=== PATIENT | female | born 1950 | race Caucasian/White ===

== ENCOUNTER 2023-07-16 13:00 | Day surgery (SDC) | payer MEDICARE, SELFPAY ==
[2023-07-16] VITALS (11 sets, daily range): BP systolic 102–145; BP diastolic 55–73; BMI 33.6
[2023-07-16] MEDS: LOW STRENGTH ASPIRIN 243 MG PO (13:35)
[2023-07-16] MEDS: NSS 1000 IV (13:40)
--- NOTE | 2023-07-16 14:50 | ITS.CL.CATH ---
Dye Weigher - Catheterization
Cardiac Catheterization
Procedure Report:
CARDIAC CATHETERIZATION REPORT
Date of Procedure: 07/16/2023
Referring: Jalil Camejo MD
Indication: Chest discomfort with abnormal stress test with prior history Takotsubo cardiomyopathy
HEMODYNAMIC DATA
AO: 148/83
LV: 148/24
LEFT VENTRICULOGRAPHY: Normal left-ventricular wall motion with EF 65%
CORONARY ANGIOGRAPHY
Dominance: Right
Left Main: Normal
LAD: Normal
Circumflex: Normal
RCA: Normal dominant vessel
Closure Device: None-the procedure was performed via the right radial artery. The Jerrod's test was normal prior to the procedure.
Radiation (mGy): 217
DAP (cm2.Gy): 16.5
Fluoroscopy time: 2.2 minutes
CONCLUSIONS
1: Normal ventricular wall motion with EF 65%
2: Normal coronary arteries
Copy to: Jalil Camejo MD, Jessica Sullivan DO
Bernabe Short MD, [facility]
== END 2023-07-16 16:30 | disposition home or self-care (01) ==
LOC: CATH 13:00
PROVIDERS: ATTENDING PHYSICIAN Internal Medicine Cardiovascular Disease; FAMILY PHYSICIAN Family Medicine; OTHER PHYSICIAN Internal Medicine Cardiovascular Disease
DX: R07.89 Other chest pain (principal); R94.39 Abnormal result of other cardiovascular function study; I51.81 Takotsubo syndrome; I47.10 Supraventricular tachycardia, unspecified; K21.9 Gastro-esophageal reflux disease without esophagitis; Z85.3 Personal history of malignant neoplasm of breast
CPT/HCPCS: 93458; C1817; C1894; Q9967

== ENCOUNTER → 2023-08-25 16:46 | Outpatient (REF) | payer MEDICARE, SELFPAY | LOC: WDC 16:46 | PROVIDERS: ATTENDING PHYSICIAN Family Medicine | DX: Z12.31 Encounter for screening mammogram for malignant neoplasm of breast (principal) | CPT/HCPCS: 77063; 77067 ==

== ENCOUNTER → 2023-10-14 07:21 | Outpatient (REF) | payer MEDICARE, SELFPAY | LOC: MRI 3T 07:21 | PROVIDERS: ATTENDING PHYSICIAN Internal Medicine Gastroenterology; FAMILY PHYSICIAN Family Medicine | DX: K86.2 Cyst of pancreas (principal) | CPT/HCPCS: 74183; A9575 ==

== ENCOUNTER → 2023-10-22 09:17 | Outpatient (REF) | payer MEDICARE, SELFPAY | LOC: RAD 09:17 | PROVIDERS: ATTENDING PHYSICIAN Family Medicine | DX: R09.89 Other specified symptoms and signs involving the circulatory and respiratory systems (principal) | CPT/HCPCS: 93922 ==

== ENCOUNTER → 2023-10-26 10:07 | Outpatient (REF) | payer MEDICARE, SELFPAY | LOC: RAD 10:07 | PROVIDERS: ATTENDING PHYSICIAN Internal Medicine; FAMILY PHYSICIAN Family Medicine | DX: K44.9 Diaphragmatic hernia without obstruction or gangrene (principal); R14.0 Abdominal distension (gaseous) | CPT/HCPCS: 74246 ==

== ENCOUNTER 2023-11-01 14:17 | Emergency (ER) | payer MEDICARE, SELFPAY ==
[2023-11-01 14:19] VITALS: BP 146/63; BMI 35.9
--- NOTE | 2023-11-01 14:57 | ED.MUSCINJ ---
HPI-Injury
<Diandra Lopez MILLED RUBBER TENDER - Last Filed: 11/02/23 20:50>
General
Chief Complaint: Fall
Source: patient
Exam Limitations: none
Time Seen by Provider: 11/01/23 14:56
Nursing documentation reviewed up to this point in time: agreed with
Travel History
Have you had any contact with someone who has COVID-19?: No
Do you have any symptoms of coronavirus? Fever > 100 degrees, chills, cough, shortness of breath, sore throat, loss of taste or smell, muscle aches, or headache?: No
History of Present Illness-Injury
Initial Injury comments:
73 yo female w h/o HTN, GERD, here with right rib pain after a fall. Foot slipped as she was coming down her stairs at home about 2 hours ago she fell off the last step, landed on her knees fell sideways and struck right posterior ribs on a
planter, was on her knees, leaning on an ottoman for about 45 minutes until EMS came. Her witnessed the fall and called EMS. Denies hitting head, not anticoagulated.
Hx fibromyalgia takes Tramadol 25 mg QID. Last dose 11 a.m.
Past History
<Diandra Lopez, MILLED RUBBER TENDER - Last Filed: 11/02/23 20:50>
Past History
ED Past Medical History: Fibromyalgia, GERD, HTN, Hypercholesterolemia and Other
Social History
Tobacco: Non-smoker
Personal:
Living: with family
Employment: Retired
Review of Systems
<Diandra Lopez, MILLED RUBBER TENDER - Last Filed: 11/02/23 20:50>
Review of Systems
Allergies reviewed?: Yes
All Other Systems: ROS reviewed and negative except as documented in HPI and ROS
Constitutional: Denies fever
Respiratory: Denies cough or trouble breathing
Cardiac: Denies chest pain
ABD/GI: Denies abdominal pain
Musculoskeletal: Reports other (posterior right rib pain)
Skin: Reports no symptoms
Neurological: Reports no symptoms
Phy Exam
<Diandra Lopez MILLED RUBBER TENDER - Last Filed: 11/02/23 20:50>
Physical Exam
Physical Exam:
GENERAL: No acute distress. A&Ox3.
CONSTITUTIONAL: Afebrile.
EYES: PERRL, conjunctivae normal
Neck: Supple
ENMT: moist mucus membranes, Pharynx nl
RESPIRATORY: Regular respirations, nonlabored, lungs clear.
CARDIOVASCULAR: Regular rate and rhythm, no murmurs, no rubs.
GI: Soft, nontender, normal BS
MUSCULOSKELETAL: Tender right mid posterior lateral ribs. Well perfused.
SKIN: Warm, dry, pink
PSYCH: Normal mood and affect. Well kept, interactive and appropriate
NEUROLOGIC: Awake, alert and oriented. No focal neurological deficits
Injury Course
<Diandra Lopez, MILLED RUBBER TENDER - Last Filed: 11/02/23 20:50>
Orders/Labs/Results
Orders:
Orders
11/01/23 14:32
CR Ribs-right 2 Vw No Pa Chest Urgent
Comment:
Reason For Exam: fall, pain
11/01/23 15:05
HYDROmorphone [Dilaudid] 0.5 mg IM NOW STA
Ibuprofen [Motrin] 600 mg PO NOW STA
11/01/23 16:16
CT Chest/abd/pel W Iv Cont Urgent
Reason For Exam: fall, fx ribs, admitting
0.9% Sodium Chloride 500 ml [Nss] 500 ml IV BOLUS
11/01/23 16:46
Complete Blood Count/With Diff Urgent
Comprehensive Metabolic Panel Urgent
11/01/23 18:36
Carvedilol [Coreg] 6.25 mg PO NOW STA
11/01/23 21:54
HYDROmorphone [Dilaudid] 0.5 mg IV NOW STA
Abnormal Lab Results
11/01/23
16:46
WBC 21.2 H 10^3/uL
(4.8-10.8)
RBC 3.58 L 10^6/uL
(4.20-5.40)
Hgb 11.5 L g/dL
(12.0-16.0)
Hct 33.3 L %
(37.0-47.0)
MCH 32.1 H pg
(27.0-31.0)
Abs Immat Gran (auto) 0.1 H 10^3/uL
(0-0.05)
Absolute Neuts (auto) 19.0 H 10^3/uL
(1.4-6.5)
Absolute Lymphs (auto) 1.1 L 10^3/uL
(1.2-3.4)
Absolute Monos (auto) 0.8 H 10^3/uL
(0.1-0.6)
Immature Gran % 0.6 H %
(0-0.5)
Neutrophils % 89.6 H %
(42.2-75.2)
Lymphocytes % 5.4 L %
(20.5-51.1)
BUN 18 H mg/dl
(7-17)
Glucose 130 H mg/dl
(70-99)
11/01/23 16:46
11/01/23 16:46
Maritalt;Sylvester Spears, - Last Filed: 11/01/23 19:53>
Orders/Labs/Results
Orders:
Orders
11/01/23 14:32
CR Ribs-right 2 Vw No Pa Chest Urgent
Comment:
Reason For Exam: fall, pain
11/01/23 15:05
HYDROmorphone [Dilaudid] 0.5 mg IM NOW STA
Ibuprofen [Motrin] 600 mg PO NOW STA
11/01/23 16:16
CT Chest/abd/pel W Iv Cont Urgent
Reason For Exam: fall, fx ribs, admitting
0.9% Sodium Chloride 500 ml [Nss] 500 ml IV BOLUS
11/01/23 16:46
Complete Blood Count/With Diff Urgent
Comprehensive Metabolic Panel Urgent
11/01/23 18:36
Carvedilol [Coreg] 6.25 mg PO NOW STA
11/01/23 21:54
HYDROmorphone [Dilaudid] 0.5 mg IV NOW STA
Abnormal Lab Results
11/01/23
16:46
WBC 21.2 H 10^3/uL
(4.8-10.8)
RBC 3.58 L 10^6/uL
(4.20-5.40)
Hgb 11.5 L g/dL
(12.0-16.0)
Hct 33.3 L %
(37.0-47.0)
MCH 32.1 H pg
(27.0-31.0)
Abs Immat Gran (auto) 0.1 H 10^3/uL
(0-0.05)
Absolute Neuts (auto) 19.0 H 10^3/uL
(1.4-6.5)
Absolute Lymphs (auto) 1.1 L 10^3/uL
(1.2-3.4)
Absolute Monos (auto) 0.8 H 10^3/uL
(0.1-0.6)
Immature Gran % 0.6 H %
(0-0.5)
Neutrophils % 89.6 H %
(42.2-75.2)
Lymphocytes % 5.4 L %
(20.5-51.1)
BUN 18 H mg/dl
(7-17)
Glucose 130 H mg/dl
(70-99)
11/01/23 16:46
11/01/23 16:46
<Diandra Lopez, MILLED RUBBER TENDER - Last Filed: 11/02/23 20:50>
MDM/Problems Addressed
Differential Diagnosis Includes:
Rib fracture, pneumothorax, hemothorax
MDM/Problems Addressed:
73 yo female w h/o HTN, GERD, here with right rib pain after a fall. Foot slipped as she was coming down her stairs at home about 2 hours ago she fell off the last step, landed on her knees fell sideways and struck right posterior ribs on a
planter, was on her knees, leaning on an ottoman for about 45 minutes until EMS came. Her witnessed the fall and called EMS. Denies hitting head, not anticoagulated.
Hx fibromyalgia takes Tramadol 25 mg QID. Last dose 11 a.m.
4:00 PM
CXR: read by this examiner: Fracture ribs 7 and 8, no pneumothorax
CBC: WBC 21.2, hemoglobin 11.5, her baseline hemoglobin
CMP: Normal
6:44 PM:
CT chest/abdomen/pelvis radiology report read:IMPRESSION:
Displaced fractures of the right posterior 7th through 11th ribs with accompanying small right pleural effusion and accompanying small right anterior pneumothorax. No mediastinal shift.
No acute posttraumatic soft tissue abnormality throughout the abdomen and pelvis.
Patient informed of results. She will be transferred to trauma center, requests [facility].
Placed on 2L NC O2
Remains stable
Report given to accepting trauma surgeon Dr. Sheriff
No bed available yet, they are working on it and will get back to us.
8:49 p.m.
Case discussed with Dr. Spears who will assume care from this point
Pt remains stable, awaiting transfer to [place]
<Diandra Lopez, MILLED RUBBER TENDER - Last Filed: 11/02/23 20:50>
*Critical Care Note
Total Time (30-74mins, 75-104mins- exclusive of procedures): Not Applicable
ED Attending Note
<Diandra Lopez MILLED RUBBER TENDER - Last Filed: 11/02/23 20:50>
-
Portions of this chart may have been created with voice recognition software.� Occasional wrong word or��sound alike� substitutions may have occurred due to the inherent limitations of voice recognition software.
<Sylvester Spears DO - Last Filed: 11/01/23 19:53>
ED Attending Note
Patient seen and examined by attending physician: Yes
I performed the substantive portion of visit, reviewed & personally made and approve the management plan that is documented in note by myself or RONY.: Yes
ED Attending Note:
Patient is a 73-year-old female presents to the emergency department complaining of right sided chest pain after slipping on her deck while carrying an aluminum chair and striking the right side on a metal planter. Patient denies actually falling
to the ground. Patient denies any head injury. Patient denies any neck or back pain. Patient denies any abdominal pain or extremity pain. On physical exam the patient is is uncomfortable with tenderness in her right ribs but abdomen soft
nontender. Head is normocephalic and supple. No cyanosis or extremity deformity. Chest x-ray shows 3 rib fractures with some small pleural effusion on the right. CT was asked for and shows 5 rib fractures and small pneumothorax. Patient will be
transferred to a trauma facility.
Discharge Plan
Departure
Patient Disposition: Acute Care Hospital
Date of Disposition: 11/01/23
Time of Disposition: 22:14
Patient with high blood pressure during this ER visit?: No
Condition: Serious
Discharge Problem:
Multiple fractures of ribs of right side, Pneumothorax, acute, Fall from slip, trip, or stumble
Prescriptions:
No Action
milk thistle 175 MG tablet
175 mg PO DAILY
simvastatin 20 MG tablet
20 mg PO HS
candesartan 4 MG tablet
4 mg PO DAILY Qty: 0 0RF
Magnesium Taurate
120 mg PO BID
tramadol 50 mg Tablet
50 mg PO QID
esomeprazole magnesium [Nexium] 20 mg Capsule,Delayed Release(Dr/Ec)
20 mg PO Q48H
cholecalciferol (vitamin D3) [Vitamin D3] 25 mcg (1,000 unit) Capsule
25 mcg PO DAILY
mesalamine 1.2 gram Tablet,Delayed Release (Dr/Ec)
2.4 g PO DAILY
Cbd
1 drp sublingual HSPRN PRN (Reason: Sleep)
ibandronate [Boniva] 150 mg Tablet
150 mg PO MONTHLY
turmeric root extract 500 MG capsule
1,500 mg PO BID
coenzyme Q10 [CoQ-10] 100 mg Capsule
100 mg PO DAILY
carvedilol 3.125 mg Tablet
3.125 mg PO TID
multivitamin Tablet
1 tab PO DAILY
acetaminophen 500 MG tablet
1,000 mg PO Q6H PRN (Reason: pain)
Referrals:
Jessica Sullivan DO [Family Provider] -
Hospital Transfer
Other hospital: [facility]
I certify that the patient requires transfer: Yes
Discussed case with accepting physician: Esther
Reason for transfer: higher level of care and specialties available
Interventions
Interventions:
*Risk Screen - Suicide Last Done: 11/01/23 14:19
*General Assessment Last Done: 11/01/23 14:19
*Neglect/Abuse Screening Last Done: 11/01/23 14:19
*ED COVID-19 Vaccine History Last Done: 11/01/23 14:19
*Nursing Disposition Last Done: 11/01/23 20:58
ED-Musculoskeletal Assessment Last Done: 11/01/23 14:19
ED- Neurological Assessment Last Done: 11/01/23 14:32
ED-Skin Assessment Last Done: 11/01/23 14:32
Discharge Date and Time
Discharge Date/Time: 11/02/23 00:14
Print Language: IRISH
[2023-11-01] MEDS: MOTRIN 600 MG PO (15:53)
[2023-11-01] MEDS: DILAUDID 0.5 MG IM (15:53)
[2023-11-01] MEDS: NSS 500 IV (16:46)
[2023-11-01 16:54] LABS: % Basophils 0.4 % (0-2); % Eosinophils 0.2 % (0-6); % Immature Granulocytes 0.6 % (0-0.5); % Lymphocytes 5.4 % (20.5-51.1); % Monocytes 3.8 % (1.7-9.3); % Neutrophils 89.6 % (42.2-75.2); Absolute Basophils 0.1 10^3/uL (0-0.2); Absolute Immature Granulocytes 0.1 10^3/uL (0-0.05); Absolute Lymphocytes 1.1 10^3/uL (1.2-3.4); Absolute Monocytes 0.8 10^3/uL (0.1-0.6); Hematocrit 33.3 % (37.0-47.0); Hemoglobin 11.5 g/dL (12.0-16.0); Mean Corp Hgb Conc. 34.5 g/dL (33.0-37.0); Mean Corpuscular Hgb 32.1 pg (27.0-31.0); Mean Platelet Volume 9.5 fL (7.4-10.4); Nucleated Red Blood Cells % 0 %; Platelet Count 284 10^3/uL (130-400); Red Blood Cell Count 3.58 10^6/uL (4.20-5.40); Red Cell Dist. Width 13.9 % (11.5-14.5); White Blood Cell Count 21.2 10^3/uL (4.8-10.8)
[2023-11-01 17:09] LABS: ALT (SGPT) 20 U/L (0-35); AST (SGOT) 32 U/L (14-36); Albumin 4.3 g/dl (3.5-5.0); Alkaline Phosphatase 85 U/L (38-126); Blood Urea Nitrogen 18 mg/dl (7-17); Calcium 9.1 mg/dl (8.4-10.2); Carbon Dioxide 29 mmol/L (22-30); Chloride 106 mmol/L (98-107); Estimated Creatinine Clearance 80 ml/min; Glucose 130 mg/dl (70-99); Potassium 4.3 mmol/L (3.5-5.1); Sodium 140 mmol/L (135-145); Total Bilirubin 0.4 mg/dl (0.2-1.3); Total Protein 7.3 g/dl (6.3-8.2); eGFR > 60.00
[2023-11-01 18:48] VITALS: BP 153/55
[2023-11-01] MEDS: COREG 6.25 MG PO (18:53)
[2023-11-01 21:50] VITALS: BP 122/56
[2023-11-01] MEDS: DILAUDID 0.5 MG IV (22:03)
[2023-11-01 23:46] VITALS: BP 121/62
== END 2023-11-02 00:14 | disposition short-term general hospital (02) ==
LOC: EMR 14:17
PROVIDERS: Registered Nurse; EMERGENCY PHYSICIAN Emergency Medicine; FAMILY PHYSICIAN Family Medicine
DX: S22.41XA Multiple fractures of ribs, right side, initial encounter for closed fracture (principal); S27.0XXA Traumatic pneumothorax, initial encounter; J90 Pleural effusion, not elsewhere classified; W10.9XXA Fall (on) (from) unspecified stairs and steps, initial encounter; Y92.008 Other place in unspecified non-institutional (private) residence as the place of occurrence of the external cause; I10 Essential (primary) hypertension; K21.9 Gastro-esophageal reflux disease without esophagitis; M79.7 Fibromyalgia; E78.00 Pure hypercholesterolemia, unspecified; Z88.8 Allergy status to other drugs, medicaments and biological substances
CPT/HCPCS: 99285; 96372; 96374; 71100; 71260; 74177; 80053; 85025; Q9967

== ENCOUNTER → 2023-12-07 07:34 | Outpatient (REF) | payer MEDICARE, SELFPAY | LOC: EMG 07:34 | PROVIDERS: ATTENDING PHYSICIAN Psychiatry & Neurology Neurology; FAMILY PHYSICIAN Family Medicine | DX: M79.606 Pain in leg, unspecified (principal); R20.0 Anesthesia of skin | CPT/HCPCS: 95886; 95911 ==

== ENCOUNTER → 2023-12-17 20:28 | Outpatient (REF) | payer MEDICARE, SELFPAY | LOC: PAVMRI 20:28 | PROVIDERS: ATTENDING PHYSICIAN Psychiatry & Neurology Neurology; FAMILY PHYSICIAN Family Medicine | DX: M54.50 Low back pain, unspecified (principal) | CPT/HCPCS: 72148 ==

== ENCOUNTER → 2024-04-27 06:52 | Outpatient (REF) | payer MEDICARE, SELFPAY | LOC: RAD 06:52 | PROVIDERS: ATTENDING PHYSICIAN Internal Medicine Hematology & Oncology; FAMILY PHYSICIAN Family Medicine; REFERRING PHYSICIAN Nurse Practitioner Adult Health | DX: Z86.718 Personal history of other venous thrombosis and embolism (principal); I26.99 Other pulmonary embolism without acute cor pulmonale | CPT/HCPCS: 93970 ==

== ENCOUNTER 2024-06-13 07:50 | Day surgery (SDC) | payer MEDICARE, SELFPAY ==
[2024-05-30 11:23] LABS: Hematocrit 35.9 % (37.0-47.0); Hemoglobin 11.5 g/dL (12.0-16.0); Mean Corpuscular Hgb 31.9 pg (27.0-31.0); Mean Corpuscular Volume 99.4 fL (81.0-99.0); Mean Platelet Volume 10.3 fL (7.4-10.4); Platelet Count 292 10^3/uL (130-400); Red Blood Cell Count 3.61 10^6/uL (4.20-5.40); Red Cell Dist. Width 14.4 % (11.5-14.5); White Blood Cell Count 7.6 10^3/uL (4.8-10.8)
[2024-05-30 12:01] LABS: ALT (SGPT) 17 U/L (0-35); AST (SGOT) 24 U/L (14-36); Albumin 4.3 g/dl (3.5-5.0); Alkaline Phosphatase 51 U/L (38-126); Blood Urea Nitrogen 18 mg/dl (7-17); Calcium 9.3 mg/dl (8.4-10.2); Carbon Dioxide 31 mmol/L (22-30); Chloride 103 mmol/L (98-107); Glucose 91 mg/dl (70-99); Potassium 4.5 mmol/L (3.5-5.1); Sodium 139 mmol/L (135-145); Total Bilirubin 0.6 mg/dl (0.2-1.3); Total Protein 7.1 g/dl (6.3-8.2); eGFR > 60.00
[2024-06-13] VITALS (18 sets, daily range): BP systolic 128–163; BP diastolic 55–66; BMI 31.3
--- NOTE | 2024-06-13 08:22 | HP.FOC2 ---
Focused History & Physical
Chief Complaint
HPI:
Chief Complaint: Symptomatic paraesophageal hernia
HPI / Indication for Planned Procedure: Patient is a 73-year-old female with a known large type III/IV paraesophageal hernia that she had been following expectantly over the years. She has now been experiencing intermittent episodes of intense
upper abdominal pain, swelling and nausea. Symptoms will last a few hours until she is able to vomit which then alleviates her symptoms. She has had recent CT imaging demonstrating a large type IV paraesophageal hernia containing the entire
stomach up to the level of the pylorus. Upper GI imaging also confirms a large paraesophageal hernia with gastric rotation and delayed gastric emptying. Last EGD July 2022 with moderate chronic esophageal inflammation but biopsy negative for
Lynn's esophagus.
Relevant Past Medical History: Other (Fibromyalgia, GERD, ulcerative colitis, Takotsubo's cardiomyopathy, SVT, history of pulmonary embolism/DVT left lower extremity; paraesophageal hernia)
Relevant Social History: Negative
Relevant Family History: Negative
Relevant Past Surgical History: Positive for (Skin cancer removed, right shoulder replacement, right breast biopsy/lumpectomy and left breast biopsy, right total knee, bilateral SI joint RFA, RIH repair with mesh, cardiac catheterization, cardiac
ablation)
Review of Systems
Review of Pertinent Systems: All Systems Negative
Medication
See Medication form for detailed medications: Yes
Medication List (including Herbals & OTC):
simvastatin 20 mg tablet 20 mg PO HS 10/22/18
Cbd 1 drp sublingual HSPRN PRN Sleep 10/07/22
esomeprazole magnesium 20 mg capsule,delayed release (Nexium) 20 mg PO DAILY 10/07/22
mesalamine 1.2 gram tablet,delayed release 2.4 g PO DAILY 10/07/22
tramadol 50 mg tablet 50 mg PO QID 10/07/22
coenzyme Q10 100 mg capsule (CoQ-10) 100 mg PO DAILY 10/30/22
turmeric root extract 500 mg capsule 500 mg PO BID 10/30/22
multivitamin 1 tab PO DAILY 07/16/23
Calcium 500 + D 1 tab PO BID 06/06/24
Probiotic 1 cap PO DAILY 06/06/24
candesartan 4 mg tablet 4 mg PO DAILY 06/06/24
carvedilol 6.25 mg tablet 6.25 mg PO BID 06/06/24
ibandronate 150 mg tablet 150 mg PO QMONTH 06/06/24
magnesium 250 mg tablet 125 mg PO BID 06/06/24
milk thistle seed extract 175 mg capsule 175 mg PO DAILY 06/06/24
Medications Reviewed: Yes
Allergies and Reactions
Patient has Allergies: Yes
Noted Allergies and Reactions:
Allergy/AdvReac Type Severity Reaction Status Date / Time
oxycodone [From OxyContin] Allergy upset Verified 06/06/24 09:03
stomach
gabapentin AdvReac Joint Pain Verified 06/06/24 09:03
infliximab [From Remicade] AdvReac joint pain Verified 06/06/24 09:03
lisinopril AdvReac cough Verified 06/06/24 09:03
valsartan AdvReac Breathlessness,runny Verified 06/06/24 09:03
nose,palpitations
Pertinent Physical Exam
All Other Systems: Negative
Head/Neck: Normal
Lungs: Normal
Heart: Normal
Abdomen: Normal
Extremities: Normal
Neurological: Normal
Diagnosis / Assessment
73-year-old female presenting for scheduled operative correction symptomatic type IV paraesophageal hernia
Plan / Procedure
Robotic assisted laparoscopic repair of paraesophageal hernia
Anesthesia/Sedation to be done by Anesthesia Provider: Yes
[2024-06-13] MEDS: HEPARIN 5000 UNITS SC ×2 (10:01→21:00)
[2024-06-13] MEDS: TYLENOL 1000 MG PO (10:01)
[2024-06-13] MEDS: NORMOSOL-R/PLASMALYTE-A 1000 IV (10:18)
--- NOTE | 2024-06-13 11:11 | W.SUR.PREOP ---
Pre-Operative Surgical Note
-
I have examined this patient prior to the performance of the scheduled procedure.
The patient's condition is unchanged from the time of the current History and
Physical and the patient is able to undergo the scheduled procedure.
--- NOTE | 2024-06-13 16:01 | W.IMMPOSTOP ---
Addendum entered and electronically signed by Nicolas Calderon MD 06/13/24 16:57:
#[id number]
Original Note:
Surgical Immed Post Op Note
-
Primary Surgeon: Nicolas Calderon MD
Assisting Surgeon: Denise SOTELO
Jose Manuel Angulo MD, PGY 1
Pre-op Diagnosis: Type IV PEH
Post-op Diagnosis: Type IV PEH
Procedure Performed: RAL repair PEH with toupet fundoplication; EGD
Anesthesia Type: GETA + 0.25% Marcaine
Specimen / Cultures: none
Estimated Blood Loss: 20mL
Complications: none immediate
Operative Findings: [facility] type IV PEH containing entire stomach up to pylorus chronically incarcerated in typical organoaxial position. Entire hernia sac and contents reduced. Anterior hernia sack excised and portion of posterior hernia sack.
Posterior crural repair; 4 - interrupted 0 Silk stitches and 2 - interrupted pledgeted horizontal mattress 0 silk. 56Fr Bougie. Toupet Fundoplication. Posterior gastropexy of wrap to jean with 2-0 silk x 2.
[2024-06-13] MEDS: SUBLIMAZE 50 MCG IV ×3 (16:58→18:14)
[2024-06-13] MEDS: NSS 1000 IV (17:48)
--- NOTE | 2024-06-13 19:15 | TRANSFER ---
Received report from ORGAN PIPE MAKER METAL DANIEL. Received pt in bed at 1915 s/p Raheel lap PEH w fundoplication / intra op EGD. Pt AAOx3, able to make all needs known. X6 lap sites to abd REGULATOR INSPECTOR w/ glue, pt denied pain. 16 fr shah draining clear yellow urine. IVF as
ordered. Bed in lowest position, call mcbride within reach. Assessment ongoing.
[2024-06-13] MEDS: COREG 6.25 MG PO (21:00)
[2024-06-13] MEDS: ZOFRAN 4 MG IV (21:11)
[2024-06-13] MEDS: DILAUDID 1 MG IV (21:12)
[2024-06-14] MEDS: NSS 1000 IV ×2 (01:12→09:31)
[2024-06-14] MEDS: TORADOL 10 MG IV ×2 (01:21→09:35)
[2024-06-14 03:00] VITALS: BP 133/49
[2024-06-14] MEDS: ZOFRAN 4 MG IV ×2 (03:10→09:15)
--- NOTE | 2024-06-14 05:53 | PTCARENOTE ---
Lee catheter removed per orders at 0545 w/o incident. Pt given time and amount, hat placed in bathroom.
[2024-06-14 06:36] LABS: Hematocrit 30.4 % (37.0-47.0); Hemoglobin 10.1 g/dL (12.0-16.0); Mean Corp Hgb Conc. 33.2 g/dL (33.0-37.0); Mean Corpuscular Hgb 32.1 pg (27.0-31.0); Mean Corpuscular Volume 96.5 fL (81.0-99.0); Platelet Count 261 10^3/uL (130-400); Red Blood Cell Count 3.15 10^6/uL (4.20-5.40); Red Cell Dist. Width 14.1 % (11.5-14.5); White Blood Cell Count 10.9 10^3/uL (4.8-10.8)
[2024-06-14 06:56] LABS: Blood Urea Nitrogen 11 mg/dl (7-17); Calcium 7.8 mg/dl (8.4-10.2); Carbon Dioxide 24 mmol/L (22-30); Chloride 105 mmol/L (98-107); Estimated Creatinine Clearance 87 ml/min; Glucose 91 mg/dl (70-99); Potassium 4.1 mmol/L (3.5-5.1); Sodium 138 mmol/L (135-145); eGFR > 60.00
[2024-06-14 07:00] VITALS: BP 140/54
--- NOTE | 2024-06-14 07:15 | W.PN.GS2 ---
Today's Communication / Plan
-
`
Assessment / Plan
-
Assessment: 73 y/o female POD#1 s/p RAL PEH repair with toupet fundoplication and EGD
doing quite well post op
AFVSS
NSR on monitor - h/o SVT and ablation in past
expected acute blood loss anemia secondary to surgical blood loss and dilutional with IVF; with h/o chronic anemia (preop 11.5)
Plan: start on clear liquid diet and advance as tolerated to full liquids for lunch
home meds for HTN and h/o AVNRT/takotsubo cardiomyopathy
multimodal pain control options
zofran ATC for initial 24hrs post op, PRN antiemetic available
ambulate, encourage OOBTC and IS use
shah out and DTV
protonix for GIp
heparin/SCDs for VTEp (prior hx DTV/PE after fall with numerous right sided rib factures)
possible d/c in PM vs tomorrow
Subjective Data
-
Date of Service: June 14, 2024
pt seen and examined
resting comfortably, reports good post op pain control
no nausea
breathing comfortably
Objective Data
-
Intake and Output
06/13/24 06/14/24 06/15/24
06:59 06:59 06:59
Intake Total 2220 / 2220
Output Total 1600 / 1600
Balance 620 / 620
Intake:
Oral fluids 480 / 480
IV fluids (Total) 1740 / 1740
NSS 300 / 300
Output:
Urine, Shah 1600 / 1600
Vital Signs
Temp Pulse Resp BP Pulse Ox
98.4 F 65 16 133/49 96
06/14/24 03:00 06/14/24 03:00 06/14/24 03:00 06/14/24 03:00 06/14/24 03:00
Lab Results
06/14/24 05:31
06/14/24 05:31
Calcium 7.8 mg/dl (8.4-10.2) L 06/14/24 05:31
Total Bilirubin 0.6 mg/dl (0.2-1.3) 05/30/24 08:07
AST 24 U/L (14-36) 05/30/24 08:07
ALT 17 U/L (0-35) 05/30/24 08:07
Alkaline Phosphatase 51 U/L (38-126) 05/30/24 08:07
Total Protein 7.1 g/dl (6.3-8.2) 05/30/24 08:07
Albumin 4.3 g/dl (3.5-5.0) 05/30/24 08:07
Physical Exam
-
NAD AAOx3
ABD: soft, ND, minimal incisional tenderness
incisions with glue dressings
[2024-06-14] MEDS: COREG 6.25 MG PO (09:13)
[2024-06-14] MEDS: LOW STRENGTH ASPIRIN 81 MG PO (09:13)
[2024-06-14] MEDS: ATACAND 4 MG PO (09:13)
[2024-06-14] MEDS: PROTONIX IV 40 MG IV (09:14)
[2024-06-14] MEDS: NSS (PRESERVATIVE FREE) 10 ML IV (09:14)
[2024-06-14] MEDS: HEPARIN 5000 UNITS SC (09:15)
[2024-06-14 11:00] VITALS: BP 134/50
--- NOTE | 2024-06-14 11:19 | CM ---
Met with pt at bedside
Pt reports she lives with her spouse in a 1 story home; 1 step to enter
Independent with ADL's, ambulates with quad cane at baseline, drives
DME - rolling walker, quad cane
SNF - denies past hx
HH - has had in past - unsure of agency
PCP - Jessica Sullivan
Pharm - [facility] or [facility]
Plan - anticipate home no needs
--- NOTE | 2024-06-14 13:04 | W.PN.SURGUPD ---
Surgical Update
Surgical Update
pt seen in follow up
feeling well and tolerated liquids with minimal dysphagia when initially ate jello quickly,
no nausea
feels ready for d/c and medically stable for d/c home
dietary instructions and follow up reviewed with pateint
--- NOTE | 2024-06-14 13:06 | W.DS.TRANS ---
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
-
Discharge Instructions:
Sleep Apnea Risk Intermediate
Discharge Diagnosis/Procedures PEH, robotic assisted laparoscopic repair PEH
with toupet fundoplication and EGD
Diet Other diet,Supplements
Additional Diets start with full liquid diet for 24-48hrs then
begin soft post fundoplication diet as per
handout provided if no troubles swallowing food.
avoid carbonation, avoid drinking straws.
smaller meal sizes, smaller bite sizes and take
tare to chew solid foods. allow time for
swallowing.
Activity No strenuous activity
Additional Activity no lifting over 10-15lbs for 6 weeks post op
Driving Restrictions no driving for 2-3 days or if using narcotics
Bathing Restrictions OK to Shower
Wound Care glue at surgical sites typically peels off in 2-
3 weeks
Instructions:
Stand-Alone Forms:
Changes to Home Medications: No
Discharge Medications:
DC Medications w/original date entered in [employer]
simvastatin 20 mg tablet 20 mg PO HS 10/22/18
Cbd 1 drp sublingual HSPRN PRN Sleep 10/07/22
esomeprazole magnesium 20 mg capsule,delayed release (Nexium) 20 mg PO DAILY 10/07/22
mesalamine 1.2 gram tablet,delayed release 2.4 g PO DAILY 10/07/22
tramadol 50 mg tablet 50 mg PO QID 10/07/22
coenzyme Q10 100 mg capsule (CoQ-10) 100 mg PO DAILY 10/30/22
turmeric root extract 500 mg capsule 500 mg PO BID 10/30/22
multivitamin 1 tab PO DAILY 07/16/23
Calcium 500 + D 1 tab PO BID 06/06/24
Probiotic 1 cap PO DAILY 06/06/24
candesartan 4 mg tablet 4 mg PO DAILY 06/06/24
carvedilol 6.25 mg tablet 6.25 mg PO BID 06/06/24
ibandronate 150 mg tablet 150 mg PO QMONTH 06/06/24
magnesium 250 mg tablet 125 mg PO BID 06/06/24
milk thistle seed extract 175 mg capsule 175 mg PO DAILY 06/06/24
aspirin 81 mg tablet 81 mg PO DAILY 06/13/24
acetaminophen 325 mg tablet 650 mg (2 x 325 mg) PO Q4HPRN PRN mild pain #1 tab 06/14/24
ibuprofen 200 mg tablet 400 mg (2 x 200 mg) PO Q6HPRN PRN moderate pain #1 tab 06/14/24
ondansetron 4 mg disintegrating tablet 4 mg PO Q8HPRN PRN nausea/vomiting #10 tabs 06/14/24
polyethylene glycol 3350 17 gram/dose oral powder (Miralax) 4 g PO DAILY PRN Constipation #119 grams 06/14/24
Home Medication Changes
Pending Results: No
[2024-06-14] MEDS: ULTRAM 50 MG PO (13:09)
== END 2024-06-14 14:26 | disposition home or self-care (01) ==
LOC: SDS 07:50
PROVIDERS: ATTENDING PHYSICIAN Surgery; FAMILY PHYSICIAN Family Medicine
DX: K44.9 Diaphragmatic hernia without obstruction or gangrene (principal); R10.10 Upper abdominal pain, unspecified
CPT/HCPCS: 43281; 43235; 80048; 80053; 85027; 86850; 86900; 86901

== ENCOUNTER → 2024-08-10 06:50 | Outpatient (REF) | payer MEDICARE, SELFPAY | LOC: PAVMRI 06:50 | PROVIDERS: ATTENDING PHYSICIAN Internal Medicine; FAMILY PHYSICIAN Family Medicine | DX: M47.816 Spondylosis without myelopathy or radiculopathy, lumbar region (principal) | CPT/HCPCS: 72110; 72148 ==

== ENCOUNTER 2024-08-22 06:28 | Day surgery (SDC) | payer MEDICARE, SELFPAY | END 2024-08-22 14:22 | disposition home or self-care (01) | LOC: GI 06:28 | PROVIDERS: ATTENDING PHYSICIAN Internal Medicine | DX: Z12.11 Encounter for screening for malignant neoplasm of colon (principal); D12.3 Benign neoplasm of transverse colon; K51.50 Left sided colitis without complications | CPT/HCPCS: 45385; 45380; 88305; 93005 ==

== ENCOUNTER → 2024-08-25 15:32 | Outpatient (REF) | payer MEDICARE, SELFPAY | LOC: WDC 15:32 | PROVIDERS: ATTENDING PHYSICIAN Family Medicine | DX: Z12.31 Encounter for screening mammogram for malignant neoplasm of breast (principal) | CPT/HCPCS: 77063; 77067 ==

== ENCOUNTER → 2024-11-01 12:06 | Outpatient (REF) | payer MEDICARE, SELFPAY | LOC: MRI 12:06 | PROVIDERS: ATTENDING PHYSICIAN Internal Medicine Gastroenterology; FAMILY PHYSICIAN Family Medicine | DX: K86.2 Cyst of pancreas (principal) | CPT/HCPCS: 74183; A9575 ==

== ENCOUNTER → 2024-11-25 08:09 | Outpatient (REF) | payer MEDICARE, SELFPAY | LOC: RCS 08:09 | PROVIDERS: ATTENDING PHYSICIAN Internal Medicine Cardiovascular Disease; FAMILY PHYSICIAN Family Medicine | DX: R01.1 Cardiac murmur, unspecified (principal) | CPT/HCPCS: 93306 ==